=== PATIENT | female | born 1970 | race Caucasian/White ===

== ENCOUNTER 2017-04-06 23:25 | Emergency (ER) | payer MEDICARE, OTHER, SELFPAY ==
[~2017-04-06] VITALS: Ht 167.6 cm; Wt 64.0 kg
[2017-04-06 23:28] VITALS: BP 148/98
[2017-04-06 23:55] LABS: CULTURE INDICATED? NO; MICROSCOPIC INDICATED
[2017-04-07] MEDS ORDERED: ONDANSETRON 2MG/ML, 2ML IVPush ONE
[2017-04-07] MEDS ORDERED: SODIUM CHLORIDE 0.9% 1,000ML IVBOLUS ONE
[2017-04-07] MEDS ORDERED: SODIUM CHLORIDE FLUSH 10ML SYR IVF ONE
[2017-04-07] MEDS ORDERED: ONDANSETRON 2MG/ML, 2ML ONE (00:01)
[2017-04-07 00:09] LABS: BASOPHILS # (AUTO) 0.03 x10^3/uL (0-0.1); BASOPHILS % (AUTO) 0 % (0-1); EOSINOPHILS # (AUTO) 0.17 x10^3/uL (0-0.4); EOSINOPHILS % (AUTO) 2 % (1-7); LYMPHOCYTES # (AUTO) 1.75 x10^3/uL (1-3.4); LYMPHOCYTES % (AUTO) 22 % (22-44); MD NO; MEAN CORPUSCULAR HEMOGLOBIN 31.6 pg (27.0-34.8); MEAN CORPUSCULAR VOLUME 95.7 fL (80-100); MEAN PLATELET VOLUME 8.4 fL (7.4-10.4); MONOCYTES # (AUTO) 0.39 x10^3/uL (0.2-0.8); MONOCYTES % (AUTO) 5 % (2-9); NEUTROPHILS # (AUTO) 5.49 x10^3/uL (1.8-6.8); NEUTROPHILS % (AUTO) 70 % (42-75); PLATELET COUNT 147 x10^3/uL (130-400); RED BLOOD COUNT 4.69 x10^6/uL (3.82-5.3); RED CELL DISTRIBUTION WIDTH 13.3 % (9.6-15.2)
[2017-04-07 00:19] LABS: ALANINE AMINOTRANSFERASE 22 U/L (12-78); ALBUMIN 4.3 g/dL (3.4-5.0); ANION GAP 6 mmol/L (5-15); CALCIUM 9.3 mg/dL (8.5-10.1); CHLORIDE 109 mmol/L (98-107)
[2017-04-07 00:21] LABS: ALKALINE PHOSPHATASE 48 U/L (45-117); BILIRUBIN,TOTAL 0.8 mg/dL (0.2-1.0); TOTAL PROTEIN 7.2 g/dL (6.4-8.2)
== END 2017-04-07 01:10 | disposition home or self-care (01) ==
LOC: ED 23:59
DX: R10.84 Generalized abdominal pain (principal); R11.2 Nausea with vomiting, unspecified; K50.90 Crohn's disease, unspecified, without complications
CPT/HCPCS: 36415; 74022; 80053; 81001; 83690; 85025; 96374; 99285; J2405; J7030

== ENCOUNTER 2017-05-15 08:23 | Emergency (ER) | payer MEDICARE ==
[~2017-05-15] VITALS: Ht 167.6 cm; Wt 57.2 kg
[2017-05-15] MEDS ORDERED: DIPHENHYDRAMINE 50 MG/ML, 1ML ONE (11:29)
[2017-05-15] MEDS ORDERED: METOCLOPRAMIDE 5 MG/ML, 2ML ONE (11:29)
[2017-05-15] MEDS ORDERED: MAALOX/HYOSCYAMINE/LIDOCAINE 45 ML BTL ONE (11:30)
[2017-05-15] MEDS ORDERED: FAMOTIDINE 20 MG/2 ML IVP ONE (11:30)
[2017-05-15] MEDS ORDERED: MAALOX/HYOSCYAMINE/LIDOCAINE 45 ML BTL PO ONE (11:30)
[2017-05-15] MEDS ORDERED: FAMOTIDINE 20 MG/2 ML ONE (11:30)
[2017-05-15] MEDS ORDERED: DIPHENHYDRAMINE 50 MG/ML, 1ML IVPush ONE (11:30)
[2017-05-15] MEDS ORDERED: SODIUM CHLORIDE FLUSH 10ML SYR IVF ONE (11:30)
[2017-05-15] MEDS ORDERED: METOCLOPRAMIDE 5 MG/ML, 2ML IVPush ONE (11:30)
[2017-05-15] MEDS ORDERED: SODIUM CHLORIDE 0.9% 1,000ML IVBOLUS ONE (11:30)
[2017-05-15] MEDS ORDERED: MORPHINE SULFATE 4 MG/ML, 1ML IVPush PRN (11:30)
[2017-05-15 11:38] LABS: BASOPHILS # (AUTO) 0.04 x10^3/uL (0-0.1); BASOPHILS % (AUTO) 1 % (0-1); EOSINOPHILS % (AUTO) 4 % (1-7); LYMPHOCYTES # (AUTO) 1.78 x10^3/uL (1-3.4); LYMPHOCYTES % (AUTO) 23 % (22-44); MD NO; MEAN CORPUSCULAR HEMOGLOBIN 32.2 pg (27.0-34.8); MEAN CORPUSCULAR HGB CONC 33.4 g/dL (32.4-35.8); MEAN CORPUSCULAR VOLUME 96.3 fL (80-100); MEAN PLATELET VOLUME 8.6 fL (7.4-10.4); MONOCYTES # (AUTO) 0.29 x10^3/uL (0.2-0.8); MONOCYTES % (AUTO) 4 % (2-9); NEUTROPHILS % (AUTO) 69 % (42-75); PLATELET COUNT 162 x10^3/uL (130-400); RED BLOOD COUNT 4.38 x10^6/uL (3.82-5.3); RED CELL DISTRIBUTION WIDTH 13.9 % (9.6-15.2)
[2017-05-15 11:42] LABS: ALANINE AMINOTRANSFERASE 20 U/L (12-78); ALBUMIN 4.1 g/dL (3.4-5.0); ANION GAP 6 mmol/L (5-15); CHLORIDE 111 mmol/L (98-107); CREATININE 0.82 mg/dL (0.55-1.02)
[2017-05-15 11:46] LABS: ALKALINE PHOSPHATASE 54 U/L (45-117); BILIRUBIN,TOTAL 0.5 mg/dL (0.2-1.0)
[2017-05-15 11:47] LABS: ACETAMINOPHEN < 2 mcg/mL (10-30)
[2017-05-15 12:01] LABS: AMPHETAMINE SCREEN, URINE Negative (Negative); BARBITURATE SCREEN, URINE Negative (Negative); BENZODIAZEPINE SCREEN, URINE Negative (Negative); CANNABINOID SCREEN, URINE Negative (Negative); COCAINE SCREEN, URINE Negative (Negative); METHADONE SCREEN, URINE Negative (Negative); OPIATE SCREEN, URINE Positive (Negative)
[2017-05-15] MEDS ORDERED: OMNIPAQUE 350 MG/ML, 100ML BOTTLE ONE (12:56)
[2017-05-15] MEDS ORDERED: ONDANSETRON 2MG/ML, 2ML IVPush ONE ×2 (13:00→13:30)
[2017-05-15] MEDS ORDERED: ONDANSETRON 2MG/ML, 2ML ONE (13:01)
[2017-05-15 13:42] VITALS: BP 121/65
[2017-05-15 14:34] LABS: MICROSCOPIC NOT IND
[2017-05-15 14:38] LABS: CULTURE INDICATED? NO
== END 2017-05-15 13:46 | disposition home or self-care (01) ==
LOC: ED 11:34
DX: R10.84 Generalized abdominal pain (principal); M54.9 Dorsalgia, unspecified; G89.29 Other chronic pain; Z88.6 Allergy status to analgesic agent
CPT/HCPCS: 36415; 71045; 74177; 80053; 80307; 81003; 83690; 84703; 85025; 86677; 96361; 96374; 96375; 99285; J1200; J2405; J7030; Q9967

== ENCOUNTER 2017-12-16 15:03 | Emergency (ER) | payer MEDICARE ==
[~2017-12-16] VITALS: Ht 167.6 cm; Wt 54.7 kg
[2017-12-16 16:52] VITALS: BP 138/66
== END 2017-12-16 19:05 | disposition home or self-care (01) ==
LOC: ED 16:18
DX: S32.435A Nondisplaced fracture of anterior column [iliopubic] of left acetabulum, initial encounter for closed fracture (principal); I34.1 Nonrheumatic mitral (valve) prolapse; G89.29 Other chronic pain; Z90.89 Acquired absence of other organs; W01.0XXA Fall on same level from slipping, tripping and stumbling without subsequent striking against object, initial encounter; Y93.89 Activity, other specified; Y92.009 Unspecified place in unspecified non-institutional (private) residence as the place of occurrence of the external cause; Y99.8 Other external cause status
CPT/HCPCS: 72190; 72220; 99284

== ENCOUNTER 2018-10-17 07:33 | Emergency (ER) | payer MEDICARE ==
[~2018-10-17] VITALS: Ht 167.6 cm; Wt 60.4 kg
[2018-10-17 08:07] VITALS: BP 144/57
== END 2018-10-17 08:25 | disposition home or self-care (01) ==
LOC: ED 08:20
DX: K02.9 Dental caries, unspecified (principal); K50.90 Crohn's disease, unspecified, without complications
CPT/HCPCS: 99283

== ENCOUNTER 2019-04-01 10:04 | Emergency (ER) | payer MEDICARE ==
[~2019-04-01] VITALS: Ht 167.6 cm; Wt 60.5 kg
[~2019-04-01 10:04] MED LIST: GABA300C10 PO; PROP40TA PO
[2019-04-01 10:08] VITALS: BP 119/76
--- NOTE | 2019-04-01 10:28 | NUR ---
PT AMBULATORY TO ROOM 6 W/ C/O L SHOULDER PAIN AFTER MGL A FEW DAYS AGO. PT STATES SHE FELL AND HIT HER SHOULDER AND HIP NOW HAS PAIN/DIFFICULTY MOVING L SHOULDER. PT ALSO C/O R KNEE PAIN AFTER POPPING IT BACK INTO PLACE. PT RESTING ON GURNEY. NADN. WARM BLANKET PROVIDED.
== END 2019-04-01 11:05 | disposition home or self-care (01) ==
LOC: ED 10:59
DX: S43.422A Sprain of left rotator cuff capsule, initial encounter (principal); S83.91XA Sprain of unspecified site of right knee, initial encounter; S73.102A Unspecified sprain of left hip, initial encounter; F17.200 Nicotine dependence, unspecified, uncomplicated; Z90.89 Acquired absence of other organs; W19.XXXA Unspecified fall, initial encounter; Y93.89 Activity, other specified; Y92.098 Other place in other non-institutional residence as the place of occurrence of the external cause; Y99.8 Other external cause status
CPT/HCPCS: 99283

== ENCOUNTER 2019-06-18 17:06 | Emergency (ER) | payer MEDICARE ==
[~2019-06-18] VITALS: Ht 167.6 cm; Wt 61.4 kg
[~2019-06-18 17:06] MED LIST changes: +ACET-1600 PO; +CETI10CA PO; +DIPH25CA61 PO; +DOXY100T PO; +GUAI100G2 PO; +NAPR220C2 PO; +ZOLP10TA PO
[2019-06-18 17:08] VITALS: BP 132/81
[2019-06-18] MEDS ORDERED: RABIES VACCINE /PF 2.5 UNITS IM-VACC ONE (17:30)
[2019-06-18] MEDS ORDERED: NEOSPORIN OINT. PKT 1 PACKET ONE (17:33)
--- NOTE | 2019-06-18 17:38 | NUR ---
MED DAISY FROM PHARMACY.
--- NOTE | 2019-06-18 18:30 | NUR ---
Patient given discharge instructions and they have confirmed that they understand the instructions. Patient ambulatory with steady gait.
== END 2019-06-18 18:31 | disposition home or self-care (01) ==
LOC: ED 17:53
DX: Z48.00 Encounter for change or removal of nonsurgical wound dressing (principal); G89.29 Other chronic pain; K50.90 Crohn's disease, unspecified, without complications; I34.1 Nonrheumatic mitral (valve) prolapse; Z90.89 Acquired absence of other organs
CPT/HCPCS: 90471; 90675; 99283

== ENCOUNTER 2019-06-21 18:50 | Emergency (ER) | payer MEDICARE ==
[~2019-06-21] VITALS: Ht 167.6 cm; Wt 59.5 kg
[2019-06-21] MEDS ORDERED: RABIES VACCINE /PF 2.5 UNITS IM-VACC STA (19:14)
[2019-06-21 20:59] VITALS: BP 145/86
--- NOTE | 2019-06-21 20:59 | NUR ---
PRINCESS RN: ASSISTED IN PT CARE. PT'S LAST DOSE OF RABIES VACCINE GIVEN. PT HAS TOLERATED ALL PREVIOUS DOSES WELL. VSS. PT D/C HOME WITH RX FOR ANTIBIOTIC.
== END 2019-06-21 21:01 | disposition home or self-care (01) ==
LOC: ED 19:16
DX: Z23 Encounter for immunization (principal); K08.89 Other specified disorders of teeth and supporting structures; F17.200 Nicotine dependence, unspecified, uncomplicated
CPT/HCPCS: 90471; 90675; 99283

== ENCOUNTER 2019-11-16 15:39 | Emergency (ER) | payer MEDICARE ==
[~2019-11-16] VITALS: Ht 167.6 cm; Wt 55.3 kg
[2019-11-16 15:43] VITALS: BP 150/70
[2019-11-16] MEDS ORDERED: FLUORESCEIN OPHTHALMIC 1 MG STRIP ONE (16:21)
[2019-11-16] MEDS ORDERED: PROPARACAINE OPHTH 0.5%, 15ML ONE (16:21)
[2019-11-16] MEDS ORDERED: PROPARACAINE OPHTH 0.5%, 15ML LEFTEYE ONE (16:30)
[2019-11-16] MEDS ORDERED: FLUORESCEIN OPHTHALMIC 1 MG STRIP LEFTEYE ONE (16:30)
== END 2019-11-16 17:05 | disposition home or self-care (01) ==
LOC: ED 16:01
DX: H10.022 Other mucopurulent conjunctivitis, left eye (principal); H57.12 Ocular pain, left eye; G89.29 Other chronic pain; F17.200 Nicotine dependence, unspecified, uncomplicated
CPT/HCPCS: 99283

== ENCOUNTER 2020-08-29 17:51 | Emergency (ER) | payer MEDICARE ==
[~2020-08-29] VITALS: Ht 167.6 cm; Wt 53.2 kg
[2020-08-29 18:13] VITALS: BP 128/72
[2020-08-29] MEDS ORDERED: HYDROcodone/APAP 7.5-325MG/15ML UDC PO ONE (19:30)
[2020-08-29] MEDS ORDERED: HYDROcodone/APAP 7.5-325MG/15ML UDC ONE (19:37)
== END 2020-08-29 20:01 | disposition home or self-care (01) ==
LOC: ED 19:15
DX: R68.84 Jaw pain (principal); Z76.0 Encounter for issue of repeat prescription; F17.210 Nicotine dependence, cigarettes, uncomplicated; Z72.9 Problem related to lifestyle, unspecified
CPT/HCPCS: 99283; 99406

== ENCOUNTER 2020-09-30 13:38 | Day surgery (SDC) | payer MEDICARE ==
[2020-09-29 16:48] LABS: BASOPHILS % (AUTO) 1 % (0-1); EOSINOPHILS % (AUTO) 5 % (1-7); LYMPHOCYTES % (AUTO) 36 % (22-44); MEAN CORPUSCULAR HEMOGLOBIN 31.6 pg (27.0-34.8); MEAN CORPUSCULAR HGB CONC 33.3 g/dL (32.4-35.8); MEAN PLATELET VOLUME 8.5 fL (7.4-10.4); MONOCYTES % (AUTO) 6 % (2-9); NEUTROPHILS % (AUTO) 53 % (42-75); PLATELET COUNT 118 x10^3/uL (130-400); RED BLOOD COUNT 4.57 x10^6/uL (3.82-5.3); RED CELL DISTRIBUTION WIDTH 13.9 % (9.6-15.2)
[2020-09-29 16:52] LABS: ALANINE AMINOTRANSFERASE 18 U/L (12-78); ALBUMIN 3.6 g/dL (3.4-5.0); ANION GAP 3 mmol/L (5-15); CALCIUM 9.1 mg/dL (8.5-10.1); CHLORIDE 108 mmol/L (98-107); CREATININE 1.01 mg/dL (0.55-1.02)
[2020-09-29 16:54] LABS: ALKALINE PHOSPHATASE 81 U/L (45-117); BILIRUBIN,TOTAL 0.7 mg/dL (0.2-1.0); TOTAL PROTEIN 6.6 g/dL (6.4-8.2)
[2020-09-29 17:02] LABS: INTERNATIONAL NORMALIZED RATIO 1.11 (0.93-1.1); PROTHROMBIN TIME 11.8 Seconds (9.6-11.5)
[~2020-09-30] VITALS: Ht 167.6 cm; Wt 50.3 kg
[~2020-09-30 13:38] MED LIST changes: +ACETAMINOPHEN 325 MG TABLET PO PRN; +CALC625T23 PO; +DIGE1TAB PO; +EPHEDRINE 50 MG/ML, 1ML IVPush PRN; +FENTANYL PF 100 MCG/2ML IV PRN; +HYDROmorphone 1 MG/ML, 1ML INJ IVPush PRN; +L.AC1CAP6 PO; +LABETALOL 5MG/ML, 20ML IV PRN; +MULT-658 PO; +ONDANSETRON 2MG/ML, 2ML IVPush PRN; +OXYcodone 5 MG/5 ML ORAL.SOL UDC PO PRN; +POTA99TA2 PO; +hydrALAzine 20 MG/ML, 1ML IV PRN
[2020-09-30 14:18] VITALS: BP 117/82
[2020-09-30] MEDS ORDERED: LIDOCAINE 1%, 20ML ONE (15:00)
[2020-09-30] MEDS ORDERED: EPINEPHRINE 1 MG/ML, 1ML ONE (15:00)
[2020-09-30] MEDS ORDERED: OXYMETAZOLINE NASAL SPRAY 0.05%,30ML ONE (15:00)
[2020-09-30] MEDS ORDERED: BACITRACIN OINT 500U/GM, 15 GM ONE (15:00)
[2020-09-30] MEDS ORDERED: PROPOFOL 10 MG/ML, 20ML ONE (15:14)
[2020-09-30] MEDS ORDERED: LACTATED RINGERS 1,000 ML IV SCH (15:30)
[2020-09-30] MEDS ORDERED: CHLORHEXIDINE 15 ML UDC PO ONE (15:30)
== END 2020-09-30 16:47 | disposition home or self-care (01) ==
LOC: OR 13:38
PROVIDERS: ATTEND Plastic Surgery
DX: Z47.2 Encounter for removal of internal fixation device (principal); Z20.822 Contact with and (suspected) exposure to COVID-19; Z79.01 Long term (current) use of anticoagulants; Z79.899 Other long term (current) drug therapy; Z88.8 Allergy status to other drugs, medicaments and biological substances
CPT/HCPCS: 20680; 36415; 80053; 85025; 85610; 85730; 93005; J0171; J2704; U0003; U0005